=== PATIENT | male | born 1955 | race Caucasian/White ===

== ENCOUNTER 2018-01-21 00:43 | Inpatient (IN) ==
[2018-01-21] MEDS ORDERED: 0.9 % Sodium Chloride 1,000 ML IVC ONE (01:09)
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
[2018-01-21 01:25] LABS: Basophils # 0.1 K/mcL (0.0-0.2); Basophils % 0.6 %; Eosinophils # 0.2 K/mcL (0.0-0.6); Eosinophils % 1.8 %; Hematocrit 46.3 % (37.5-50.1); Hemoglobin 15.5 g/dL (12.9-16.9); Immature Granulocytes % 0.4 % (0-4); Lymphocytes # 2.7 K/mcL (0.6-4.6); Lymphocytes % 27.8 %; Mean Corpuscular HGB Conc 33.5 g/dL (31.6-35.5); Mean Corpuscular Hemoglobin 28.3 pg (28.0-33.3); Mean Corpuscular Volume 84.5 fL (83.0-100.0); Mean Platelet Volume 9.7 fL (9.4-12.4); Monocytes # 0.7 K/mcL (0.0-1.3); Monocytes % 7.6 %; Platelet Count 265 K/mcL (140-400); Red Blood Count 5.48 M/mcL (4.19-5.50); Red Cell Distribution Width 13.4 % (11.5-14.5); Segmented Neutrophils % 61.8 %
[2018-01-21 01:47] LABS: Alanine Aminotransferase 19 Units/L (7-52); Albumin 4.7 g/dL (3.5-5.7); Albumin/Globulin Ratio 1.4 (1.1-2.2); Alkaline Phosphatase 139 Units/L (34-104); Aspartate Amino Transferase 21 Units/L (13-39); BUN/Creatinine Ratio 11 (6-26); Bilirubin,Direct 0.2 mg/dL (0.0-0.2); Bilirubin,Indirect 0.5 mg/dL (0.0-1.2); Bilirubin,Total 0.7 mg/dL (0.3-1.0); Blood Urea Nitrogen 9 mg/dL (8-23); Calcium 10.5 mg/dL (8.6-10.3); Carbon Dioxide 24 mEq/L (23-29); Chloride 99 mEq/L (98-107); Ethanol < 10 mg/dL (Less than 10); Globulin 3.3 g/dL (2.4-3.5); Glucose 118 mg/dL (70-105); Osmolality,Calculated 282 (280-300); Potassium 3.7 mEq/L (3.5-5.1); Sodium 136 mEq/L (136-145); Troponin I < 0.03 ng/mL (< 0.04); eGFR For African Americans > 60 (> 60); eGFR For Non-African Americans > 60 (> 60)
[2018-01-21 02:01] LABS: Thyroid Stimulating Hormone 3.014 mcIU/mL (0.340-5.600)
[2018-01-21 02:47] LABS: Bilirubin,Urine Negative (Negative); Blood,Urine Negative (Negative); Clarity,Urine Clear (Clear); Color,Urine Yellow (Yellow); Glucose,Urine (UA) Normal (Normal); Ketones,Urine Negative (Negative); Leukocyte Esterase,Urine Negative (Negative); Nitrite,Urine Negative (Negative); Protein,Urine Negative (Neg-Trace); Specific Gravity,Urine 1.013 (1.010-1.025); Urobilinogen,Urine Normal (Normal)
[2018-01-21] MEDS ORDERED: Aspirin 81 MG TAB.CHEW PO ONE (03:28)
[2018-01-21] MEDS ORDERED: Promethazine 12.5 MG in 0.9 % Sodium Chloride 50 ML IVPB STA (03:34)
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
[2018-01-21] MEDS ORDERED: Naloxone 0.4 MG/ML INJ IVP PRN (07:46)
[2018-01-21] MEDS ORDERED: *HR* Dextrose 50 % in Water (Syg) 50 ML SYRINGE IVP PRN (07:55)
[2018-01-21] MEDS ORDERED: Dextrose Gel 15 GM/37.5 ML TUBE PO PRN ×2 (07:55)
[2018-01-21] MEDS ORDERED: D5% in Water 1,000 ML IVC PRN (07:55)
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
[2018-01-21] MEDS: 0.9 % Sodium Chloride 1,000 ML IVC SCH ×2 (09:16→20:02)
[2018-01-21] MEDS: Gabapentin 100 MG CAPSULE PO SCH ×3 (09:16→20:03)
[2018-01-21] MEDS: Insulin LISPRO 300 UNITS/3 ML VIAL SQ SCH ×2 (11:38→16:42)
[2018-01-21] MEDS: *HR* Heparin 5,000 UNIT/ML VIAL SQ SCH (16:41)
[2018-01-21] MEDS ORDERED: *HR* Heparin 5,000 UNIT/ML VIAL SQ SCH (18:00)
--- NOTE | 2018-01-21 19:58 | Electrocardiograph Report ---
[address] [place] [address] Test Date: 2018-01-21 Pat Name: Wyatt Zambrano Department: 103 Room: 3B Gender: M Type Caster: CHRISTOPHE : 1955 Requested By: Gael Lara Order Number: [id number] Reading MD: Dirk Nash Measurements Intervals [place] Rate: 95 P: 8 ID: [id number] QRS: -18 QRSD: 98 T: 27 QT: 333 QTc: 386 Interpretive Statements SINUS RHYTHM INFERIOR MYOCARDIAL INFARCTION, PROBABLY OLD ANTEROSEPTAL MYOCARDIAL INFARCTION, OF INDETERMINATE AGE Electronically Signed On 01-21-2018 19:56:48 EDT by Dirk Nash
[2018-01-22 05:39] LABS: Basophils # 0.1 K/mcL (0.0-0.2); Basophils % 0.8 %; Eosinophils # 0.2 K/mcL (0.0-0.6); Eosinophils % 2.9 %; Hemoglobin 14.1 g/dL (12.9-16.9); Immature Granulocytes % 0.3 % (0-4); Lymphocytes # 1.9 K/mcL (0.6-4.6); Lymphocytes % 31.6 %; Mean Corpuscular HGB Conc 33.6 g/dL (31.6-35.5); Mean Corpuscular Hemoglobin 29.1 pg (28.0-33.3); Mean Corpuscular Volume 86.8 fL (83.0-100.0); Mean Platelet Volume 10.2 fL (9.4-12.4); Monocytes # 0.5 K/mcL (0.0-1.3); Monocytes % 8.1 %; Neutrophils # 3.3 K/mcL (1.6-8.9); Platelet Count 211 K/mcL (140-400); Red Blood Count 4.84 M/mcL (4.19-5.50); Red Cell Distribution Width 13.3 % (11.5-14.5); Segmented Neutrophils % 56.3 %
[2018-01-22 05:53] LABS: BUN/Creatinine Ratio 14 (6-26); Blood Urea Nitrogen 10 mg/dL (8-23); Calcium 9.3 mg/dL (8.6-10.3); Carbon Dioxide 21 mEq/L (23-29); Chloride 107 mEq/L (98-107); Glucose 235 mg/dL (70-105); Magnesium 2.1 mg/dL (1.6-2.6); Osmolality,Calculated 291 (280-300); Phosphorous 3.7 mg/dL (2.7-4.5); Potassium 4.3 mEq/L (3.5-5.1); Sodium 137 mEq/L (136-145); eGFR For African Americans > 60 (> 60); eGFR For Non-African Americans > 60 (> 60)
[2018-01-22] MEDS: 0.9 % Sodium Chloride 1,000 ML IVC SCH ×2 (06:16→18:29)
[2018-01-22] MEDS: *HR* Heparin 5,000 UNIT/ML VIAL SQ SCH ×2 (06:16→18:28)
[2018-01-22] MEDS: Insulin LISPRO 300 UNITS/3 ML VIAL SQ SCH ×3 (08:43→16:35)
[2018-01-22] MEDS ORDERED: Gabapentin 300 MG CAPSULE PO SCH (09:00)
[2018-01-22] MEDS: Gabapentin 100 MG CAPSULE PO SCH ×3 (09:21→21:14)
[2018-01-22] MEDS: Aspirin Enteric Coated 81 MG Tablet PO SCH (09:21)
--- NOTE | 2018-01-22 13:12 | Internal Med Progress Note ---
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 Currently neurologically intact. - Constitutional Vitals: Temp Pulse Resp BP Pulse Ox 98.9 F 87 15 121/71 96 01/22/18 11:30 01/22/18 11:30 01/22/18 11:30 01/22/18 11:30 01/22/18 11:30 General appearance: Present: A&O X 3 - Head Head exam: Present: atraumatic, normocephalic - Eye Eye exam: Present: PERRL, conjuntiva pink, sclera anicteric Pupils: Present: PERRL - Neck Neck exam general surgery: Present: supple, trachea midline. Absent: lymphadenopathy - Respiratory Respiratory exam: Present: CTAB. Absent: accessory muscle use, rales, rhonchi, wheezes - Cardiovascular Cardiovascular exam: Present: RRR, +S1, +S2. Absent: diastolic murmur, gallop, rubs, systolic murmur - GI/Abdominal GI/Abdominal exam: Present: normal bowel sounds, soft, no peritoneal signs. Absent: distended, tenderness - Extremities Exam Extremities exam: Present: warm, radial pulses palpable and symmetrical. Absent : calf tenderness, cyanotic, pedal edema - Neurological Exam Neurological exam: Present: CN II-XII intact, oriented X3, no focal deficits. Absent: pronater drift, facial droop, speech deficit - Skin Skin exam: Present: dry, intact Internal Medicine: Result - Labs CBC & Chem 7: 01/22/18 05:18 01/22/18 05:18 Labs: Short CBC 01/22/18 Range/Units 05:18 WBC 5.9 (4.3-11.1) K/mcL Hgb 14.1 (12.9-16.9) g/dL Hct 42.0 (37.5-50.1) % Plt Count 211 (140-400) K/mcL Neutrophils # 3.3 (1.6-8.9) K/mcL BMP 01/22/18 05:18 Sodium 137 Potassium 4.3 Chloride 107 Carbon Dioxide 21 L BUN 10 Creatinine 0.69 L Glucose 235 H Calcium 9.3 Consult Discharge Plan - Plan [facility]errals: [facility] [[facility] Care Provider[facility] -
[2018-01-22] MEDS ORDERED: Insulin LISPRO 300 UNITS/3 ML VIAL SQ SCH (21:00)
[2018-01-23] MEDS: 0.9 % Sodium Chloride 1,000 ML IVC SCH (02:01)
[2018-01-23 04:14] LABS: Basophils # 0.1 K/mcL (0.0-0.2); Basophils % 0.7 %; Eosinophils # 0.2 K/mcL (0.0-0.6); Eosinophils % 2.3 %; Hematocrit 43.2 % (37.5-50.1); Hemoglobin 14.4 g/dL (12.9-16.9); Immature Granulocytes % 0.6 % (0-4); Lymphocytes # 2.3 K/mcL (0.6-4.6); Lymphocytes % 32.9 %; Mean Corpuscular HGB Conc 33.3 g/dL (31.6-35.5); Mean Corpuscular Hemoglobin 28.9 pg (28.0-33.3); Mean Corpuscular Volume 86.6 fL (83.0-100.0); Mean Platelet Volume 10.1 fL (9.4-12.4); Monocytes # 0.6 K/mcL (0.0-1.3); Platelet Count 234 K/mcL (140-400); Red Blood Count 4.99 M/mcL (4.19-5.50); Red Cell Distribution Width 13.2 % (11.5-14.5); Segmented Neutrophils % 55.5 %
[2018-01-23 04:33] LABS: BUN/Creatinine Ratio 11 (6-26); Blood Urea Nitrogen 7 mg/dL (8-23); Calcium 9.4 mg/dL (8.6-10.3); Carbon Dioxide 21 mEq/L (23-29); Chloride 107 mEq/L (98-107); Glucose 111 mg/dL (70-105); Osmolality,Calculated 285 (280-300); Potassium 3.8 mEq/L (3.5-5.1); Sodium 138 mEq/L (136-145); eGFR For African Americans > 60 (> 60); eGFR For Non-African Americans > 60 (> 60)
[2018-01-23] MEDS: *HR* Heparin 5,000 UNIT/ML VIAL SQ SCH (05:33)
[2018-01-23] MEDS: Aspirin Enteric Coated 81 MG Tablet PO SCH (09:00)
[2018-01-23] MEDS: Gabapentin 100 MG CAPSULE PO SCH ×2 (09:00→15:04)
[2018-01-23] MEDS: Insulin LISPRO 300 UNITS/3 ML VIAL SQ SCH ×3 (09:02→17:09)
--- NOTE | 2018-01-23 10:25 | Internal Med Progress Note ---
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 Currently neurologically intact. awaiting carotid duplex results - Constitutional Vitals: Temp Pulse Resp BP Pulse Ox 98.0 F 82 18 148/87 95 01/23/18 06:36 01/23/18 06:36 01/23/18 06:36 01/23/18 06:36 01/23/18 06:36 General appearance: Present: A&O X 3 - Head Head exam: Present: atraumatic, normocephalic - Eye Eye exam: Present: PERRL, conjuntiva pink, sclera anicteric Pupils: Present: PERRL - Neck Neck exam general surgery: Present: supple, trachea midline. Absent: lymphadenopathy - Respiratory Respiratory exam: Present: CTAB. Absent: accessory muscle use, rales, rhonchi, wheezes - Cardiovascular Cardiovascular exam: Present: RRR, +S1, +S2. Absent: diastolic murmur, gallop, rubs, systolic murmur - GI/Abdominal GI/Abdominal exam: Present: normal bowel sounds, soft, no peritoneal signs. Absent: distended, tenderness - Extremities Exam Extremities exam: Present: warm, radial pulses palpable and symmetrical. Absent : calf tenderness, cyanotic, pedal edema - Neurological Exam Neurological exam: Present: CN II-XII intact, oriented X3, no focal deficits. Absent: pronater drift, facial droop, speech deficit - Skin Skin exam: Present: dry, intact Internal Medicine: Result - Labs CBC & Chem 7: 01/23/18 03:08 01/23/18 03:08 Labs: Short CBC 01/23/18 Range/Units 03:08 WBC 7.1 (4.3-11.1) K/mcL Hgb 14.4 (12.9-16.9) g/dL Hct 43.2 (37.5-50.1) % Plt Count 234 (140-400) K/mcL Neutrophils # 4.0 (1.6-8.9) K/mcL BMP 01/23/18 03:08 Sodium 138 Potassium 3.8 Chloride 107 Carbon Dioxide 21 L BUN 7 L Creatinine 0.65 L Glucose 111 H Calcium 9.4 - Impressions Impressions Echocardiogram 01/22/18 08:49 Impressions: LVEF 60-65%. Unable to estimate RVSP due to lack of TR jet. Mild left ventricular diastolic dysfunction. Mild concentric left ventricular hypertrophy. Left Ventricular Wall Motion: Rest Echo Findings All wall segments showed normal motion. Findings: Study Quality * Technically adequate exam. Right Ventricle * Normal right ventricular structure and function. Left Atrium * Normal left atrial size. Aortic Valve * Trileaflet aortic valve with normal function. Aorta * Normally sized aortic root. Pericardium * The pericardium appears normal. ECG Findings * Normal sinus rhythm. Pulmonic Valve * No pulmonic stenosis. * No pulmonic regurgitation. Tricuspid Valve * No tricuspid stenosis. * No tricuspid regurgitation. * Unable to estimate RVSP due to lack of TR jet. Left Ventricle * LVEF 60-65%. * Mild left ventricular diastolic dysfunction. * Mild concentric left ventricular hypertrophy. Mitral Valve * Normal mitral valve structure. * No mitral stenosis. * Mild mitral regurgitation. IVC * The IVC is not well evaluated. Interatrial Septum * Interatrial septum not well evaluated. Right Atrium * Right atrium is not well visualized. Consult Discharge Plan - Plan [facility]errals: [facility] [Primary Care Provider[facility] - 01/28/18 12:30 pm
[2018-01-23] MEDS ORDERED: *HR* LORazepam 0.5 MG TABLET PO ONE (13:20)
[2018-01-23 15:10] VITALS: BP 148/90
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
== END 2018-01-23 18:16 | disposition home or self-care (01) | DRG 312 ==
LOC: EMEROO 00:43 → 3BNU 00:43
PROVIDERS: ADMIT Internal Medicine Nephrology; ATTEND Internal Medicine Nephrology